=== PATIENT | female | born 1985 | race Caucasian/White ===

== ENCOUNTER 2017-01-18 14:55 | Emergency (ER) | payer MEDICAID ==
[2017-01-18] MEDS ORDERED: methylPREDNISolone Sodium Succinate 125 MG/2 ML SDV IM ONE (15:01)
[2017-01-18] MEDS ORDERED: Albuterol/Ipratropium 3.0-0.5 MG/3 ML Neb Soln NEB ONE (15:01)
--- NOTE | 2017-01-18 15:02 | EDM.PDOC ---
ED HISTORY OF PRESENT ILLNESS - General Chief Complaint: Respiratory Problem Stated Complaint: NEEDS TO SEE A DOCTOR Time Seen by Provider: 01/18/17 15:02 Source of Information: Reports: Patient - History of Present Illness INITIAL COMMENTS - FREE TEXT/NARRATIVE: HISTORY AND PHYSICAL: History of present illness: [] Patient presents with cough and expiratory wheeze over the last week worsening today no fever nausea vomiting chills sweats however she has coughed until she vomited Patient is not sexually active hence no hCG Review of systems: As per history of present illness and below otherwise all systems reviewed and negative. Past medical history: As per history of present illness and as reviewed below otherwise noncontributory. Surgical history: As per history of present illness and as reviewed below otherwise noncontributory. Social history: No reported history of drug or alcohol abuse. Family history: As per history of present illness and as reviewed below otherwise noncontributory. Physical exam: HEENT: Atraumatic, normocephalic, pupils reactive, negative for conjunctival pallor or scleral icterus, mucous membranes moist, throat clear, neck supple, nontender, trachea midline. Lungs: Clear to auscultation, breath sounds equal bilaterally, chest nontender. Heart: S1S2, regular, negative for clicks, rubs, or JVD. Abdomen: Soft, nondistended, nontender. Negative for masses or hepatosplenomegaly. Negative for costovertebral tenderness. Pelvis: Stable nontender. Genitourinary: Deferred. Rectal: Deferred. Extremities: Atraumatic, negative for cords or calf pain. Neurovascular unremarkable. Neuro: Awake, alert, oriented. Cranial nerves II through XII unremarkable. Cerebellum unremarkable. Motor and sensory unremarkable throughout. Exam nonfocal. Diagnostics: [] Chest x-ray 2 views Therapeutics: [] DuoNeb Solu-Medrol 125 mg IM Z-Darnell HFA Medrol Dosepak Impression: [] Acute bronchitis Definitive disposition and diagnosis as appropriate pending reevaluation and review of above. - Related Data Allergies/ADRs: Allergies Allergy/AdvReac Type Severity Reaction Status Date / Time Sulfa (Sulfonamide Allergy Rash Verified 01/18/17 15:18 Antibiotics) Home Meds: Home Meds . [No Known Home Meds] 05/24/16 [History] Past Medical History - Past Health History Medical/Surgical History: Denies Medical/Surgical History Social & Family History - Family History Family Medical History: Noncontributory - Tobacco Use Smoking Status *Q: Never Smoker - Alcohol Use Days Per Week of Alcohol Use: 0 Number of Drinks Per Day: 0 Total Drinks Per Week: 0 - Recreational Drug Use Recreational Drug Use: No Drug Use in Last 12 Months: No ED ROS GENERAL - Review of Systems Review Of Systems: ROS reveals no pertinent complaints other than HPI. ED EXAM, GENERAL - Physical Exam Exam: See Below Course - Vital Signs Last Recorded V/S: Last Vital Signs Temp 36.2 C 01/18/17 15:19 Pulse 70 01/18/17 15:19 Resp 18 01/18/17 15:19 BP 132/91 H 01/18/17 15:19 Pulse Ox 100 01/18/17 15:19 - Orders/Labs/Meds Orders: Active Orders 24 hr Category Date Time Status RT Aerosol Therapy [RC] ASDIRECTED Care 01/18/17 15:02 Active Chest 2V [CR] Stat Exams 01/18/17 15:04 Taken Meds: Medications Discontinued Medications Generic Name Dose Route Start Last Admin Trade Name Rehana PRN Reason Stop Dose Admin Albuterol/Ipratropium 3 ml 01/18/17 15:01 01/18/17 15:07 Duoneb 3.0-0.5 Mg/3 Ml NEB 01/18/17 15:02 3 ml ONETIME ONE Administration Methylprednisolone Sodium Succinate 125 mg 01/18/17 15:01 01/18/17 15:19 Solu-Medrol IM 01/18/17 15:02 125 mg ONETIME ONE Administration Departure - Departure Time of Disposition: 15:54 Disposition: Home, Self-Care 01 Condition: good Clinical Impression: Acute bronchitis Forms: ED Department Discharge Additional Instructions: medication as prescribed Return if symptoms persist or worsen Followup with primary care in 2 weeks sooner as needed The following information is given to patients seen in the emergency department who are being discharged to home. This information is to outline your options for follow-up care. We provide all patients seen in our emergency department with a follow-up referral. The need for follow-up, as well as the timing and circumstances, are variable depending upon the specifics of your emergency department visit. If you don't have a primary care physician on staff, we will provide you with a referral. We always advise you to contact your personal physician following an emergency department visit to inform them of the circumstance of the visit and for follow-up with them and/or the need for any referrals to a consulting specialist. The emergency department will also refer you to a specialist when appropriate. This referral assures that you have the opportunity for follow-up care with a specialist. All of these measure are taken in an effort to provide you with optimal care, which includes your follow-up. Under all circumstances we always encourage you to contact your private physician who remains a resource for coordinating your care. When calling for follow-up care, please make the office aware that this follow-up is from your recent emergency room visit. If for any reason you are refused follow-up, please contact the [facility] emergency department at and asked to speak to the emergency department charge nurse. - My Orders Last 24 Hours: My Active Orders 01/18/17 15:02 RT Aerosol Therapy [RC] ASDIRECTED 01/18/17 15:04 Chest 2V [CR] Stat - Assessment/Plan Last 24 Hours: My Active Orders 01/18/17 15:02 RT Aerosol Therapy [RC] ASDIRECTED 01/18/17 15:04 Chest 2V [CR] Stat
[2017-01-18 16:04] VITALS: BP 130/70
--- NOTE | 2017-01-20 17:46 | CR ---
EXAM DATE: 01/18/17 PATIENT'S AGE: 31 Patient: DUANE LOPEZ Facility: [place], [place] Site . Site : 1985 Study: XRay Chest [id number] 3:39:11 PM Ordering Physician: Elizabeth Klein Final Report: INDICATION: cough/sob COMPARISON: March, 2 View Chest. Findings: The lungs are clear. Pulmonary vascularity, mediastinum and cardiac silhouette are within normal limits. No effusions and no pneumothorax. Osseous structures appear unremarkable. Impression: No evidence of acute cardiopulmonary disease. Dictated by: Alberto Betts MD @ 01/18/2017 15:47:24 (Electronic Signature) Report Signed by Proxy and Original Signed Document filed in the Medical Record. MTDD
== END 2017-01-18 16:03 | disposition home or self-care (01) ==
LOC: MW.ED 14:55
DX: J20.9 Acute bronchitis, unspecified (principal); Z88.2 Allergy status to sulfonamides
CPT/HCPCS: 71020; 87804; 94664; 96372; 99285; J2930; 99284